=== PATIENT | male | born 1980 | race Caucasian/White ===

== ENCOUNTER 2016-10-28 23:57 | Observation (INO) | payer SELFPAY ==
[~2016-10-28] VITALS: Ht 175.3 cm; Wt 64.0 kg
[~2016-10-28 23:57] MED LIST: CEPH500C3 PO
[2016-10-28 23:59] VITALS: BP 118/81; PULSE 90; RESP 12; TEMP 98.3; O2SAT 100
[2016-10-29] MEDS ORDERED: KETOROLAC TROMETHAMINE 30 MG/ML (IVP) VIAL IV PUSH ONE (00:15)
[2016-10-29] MEDS ORDERED: CLINDAMYCIN INJ 900 MG in SODIUM CHLORIDE 0.9% INJ 100 ML IV ONE (00:15)
[2016-10-29] MEDS ORDERED: TETANUS/DIPHTHERIA TOXOID ADULT 0.5 ML VIAL IM ONE (00:15)
[2016-10-29] MEDS ORDERED: SODIUM CHLOR 0.9% 1000 ML INJ 1,000 ML IV ONE (00:15)
[2016-10-29] MEDS ORDERED: LIDOCAINE HCL 1% PF 30 ML VIAL INFIL ONE (00:15)
[2016-10-29 00:16] VITALS: BP 118/81; PULSE 90; RESP 14; TEMP 98.3; O2SAT 100
--- NOTE | 2016-10-29 00:25 | PD ---
HPI Chief Complaint: skin condition Time Seen by Provider: 00:15 Travel History International Travel<30 days: No Contact w/Intl Traveler<30days: No Traveled to known affect area: No History of Present Illness HPI 36-year-old male presents to the emergency department by private transportation for evaluation of redness and swelling to the left lower leg. Patient has noted the symptoms of the past 2-3 days. Patient states symptoms worsened overnight as he was manipulating the site trying to drain it on his own. Patient does not report any ascending erythema or left groin tenderness or lymphadenopathy. Patient is not diabetic. Patient has history of prior IV drug use but has been drug free since July 2016 and reports December 2015 he was hospitalized at [facility] with multiple abscesses to the right upper extremity secondary to IV drug use and skin popping. Patient denies any skin popping to this area or recent skin popping. Patient states he is not sure but may have been bitten by something as other members in his household have had insect/spider bites. Mother at the bedside reports no one in the household with MRSA infection history. Patient reportedly had fever earlier as high as 102F. [facility] Past Medical History Narrative Medical Mitral valve prolapse prior IV drug abuse; tobacco use; nursing notes reviewed Heart Rhythm Problems: Yes (pt told MVP 15 years ago.) Cardiovascular Problems: Yes (mitral valve prolapse) Diminished Hearing: No Social History Alcohol Use: No Tobacco Use: Yes (1 PPD) Substance Use: Yes (iv dilaudid today, iv cocaine last night.) Allergies-Medications (Allergen,Severity, Reaction): Coded Allergies: No Known Allergies (Unverified , 04/25/15) Reported Meds & Prescriptions Reported Meds & Active Scripts Active Keflex (Cephalexin Monohydrate) 500 Mg Cap 500 Mg PO 4 TIMES A DAY Review of Systems Except as stated in HPI: all other systems reviewed are Neg General / Constitutional: Positive: Fever, No: Chills HENT: No: Congestion Cardiovascular: No: Chest Pain or Discomfort Respiratory: No: Shortness of Breath Gastrointestinal: No: Nausea, Vomiting, Abdominal Pain Genitourinary: No: Decreased Urinary Output, Flank Pain Musculoskeletal: Positive: Myalgias, Arthralgias, No: Limited ROM Skin: Positive Rash, Positive Lumps Neurologic: No: Weakness Psychiatric: Positive: Substance Abuse (prior history of IV Dilaudid and cocaine use), No: Anxiety Endocrine: No: Heat Intolerance Hematologic/Lymphatic: No: Lymph Node Enlargement Physical Exam Narrative GENERAL: Well-developed well-nourished male in no acute distress no respiratory distress; triage vital signs values in normal range SKIN: Warm and dry. HEAD: Normocephalic. EYES: No scleral icterus. No injection or drainage. NECK: Supple, trachea midline. No JVD or lymphadenopathy. CARDIOVASCULAR: Regular rate and rhythm without murmurs, gallops, or rubs. RESPIRATORY: Breath sounds equal bilaterally. No accessory muscle use. GASTROINTESTINAL: Abdomen soft, non-tender, nondistended. MUSCULOSKELETAL: No cyanosis, or edema. Soft tissue swelling with increased warmth, fluctuance, induration, and central scab to the medial distal left lower leg, no crepitus, no ascending erythema, no left groin lymphadenopathy or tenderness. Dorsalis pedis pulse 2+ to palpation. Capillary refill brisk less than 2 seconds per digit. BACK: Nontender without obvious deformity. No CVA tenderness. Data Data Last Documented VS Vital Signs Date Time Temp Pulse Resp B/P Pulse Ox O2 Delivery O2 Flow Rate FiO2 10/29/16 02:17 16 10/29/16 00:16 98.3 90 118/81 100 Orders Basic Metabolic Panel (Bmp) (10/29/16 00:15) Complete Blood Count With Diff (10/29/16 00:15) Blood Culture (10/29/16 00:15) Wound Culture And Gram Stain (10/29/16 00:15) Iv Access Insert/Monitor (10/29/16 00:15) Clindamycin Inj (Cleocin Inj) (10/29/16 00:15) Tetanus/Diphtheria Tox Adult (Tetanus/Di (10/29/16 00:15) Sodium Chlor 0.9% 1000 Ml Inj (Ns 1000 M (10/29/16 00:15) Lidocaine Pf 1% Inj (Xylocaine-Mpf 1% In (10/29/16 00:15) Ketorolac Inj (Toradol Inj) (10/29/16 00:15) Lactic Acid (10/29/16 02:18) Piperacil-Tazo 3.375 Gm Premix (Zosyn 3. (10/29/16 02:30) Drug Screen, Random Urine (10/29/16 02:23) Place In Observation (10/29/16 ) Vital Signs (Adult) Q4H (10/29/16 02:31) Activity Oob Ad Susana (10/29/16 02:31) Dehydrogenation Operator Head / Telemetry .CONTINUOUS (10/29/16 02:31) Diet Heart Healthy (10/29/16 Breakfast) Sodium Chloride 0.9% Flush (Ns Flush) (10/29/16 02:45) Sodium Chloride 0.9% Flush (Ns Flush) (10/29/16 09:00) Basic Metabolic Panel (Bmp) (10/30/16 06:00) Complete Blood Count With Diff (10/30/16 06:00) Case Management Consult (10/29/16 02:31) Naloxone Inj (Narcan Inj) (10/29/16 02:45) Clindamycin Inj (Cleocin Inj) (10/29/16 08:00) Piperacil-Tazo 4.5 Gm Premix (Zosyn 4.5 (10/29/16 09:00) Admit Order (Ed Use Only) (10/29/16 ) ^ Saline Lock (10/29/16 02:33) Resp Oxygen Russ C Titrat 1-4 L (10/29/16 ) Notify Dr: Other (10/29/16 02:33) Sodium Chloride 0.9% Flush (Ns Flush) (10/29/16 09:00) Sodium Chloride 0.9% Flush (Ns Flush) (10/29/16 02:45) Labs Laboratory Tests Test 10/29/16 10/29/16 01:14 02:25 White Blood Count 18.1 TH/MM3 Red Blood Count 4.36 MIL/MM3 Hemoglobin 12.8 GM/DL Hematocrit 37.7 % Mean Corpuscular Volume 86.4 FL Mean Corpuscular Hemoglobin 29.3 PG Mean Corpuscular Hemoglobin 33.9 % Concent Red Cell Distribution Width 13.2 % Platelet Count 410 TH/MM3 Mean Platelet Volume 7.3 FL Neutrophils (%) (Auto) 80.6 % Lymphocytes (%) (Auto) 9.0 % Monocytes (%) (Auto) 7.1 % Eosinophils (%) (Auto) 2.5 % Basophils (%) (Auto) 0.8 % Neutrophils # (Auto) 14.6 TH/MM3 Lymphocytes # (Auto) 1.6 TH/MM3 Monocytes # (Auto) 1.3 TH/MM3 Eosinophils # (Auto) 0.5 TH/MM3 Basophils # (Auto) 0.1 TH/MM3 CBC Comment AUTO DIFF Differential Comment AUTO DIFF CONFIRMED Platelet Estimate NORMAL Platelet Morphology Comment NORMAL Red Cell Morphology Comment NORMAL Sodium Level 137 MEQ/L Potassium Level 3.8 MEQ/L Chloride Level 104 MEQ/L Carbon Dioxide Level 26.9 MEQ/L Anion Gap 6 MEQ/L Blood Urea Nitrogen 15 MG/DL Creatinine 0.76 MG/DL Estimat Glomerular Filtration 117 ML/MIN Rate Random Glucose 89 MG/DL Calcium Level 8.4 MG/DL Lactic Acid Level 0.8 mmol/L Urine Opiates Screen NEG Urine Barbiturates Screen NEG Urine Amphetamines Screen NEG Urine Benzodiazepines Screen NEG Urine Cocaine Screen POS Urine Cannabinoids Screen NEG MDM Medical Decision Making Medical Screen Exam Complete: Yes Emergency Medical Condition: Yes Medical Record Reviewed: Yes Interpretation(s) CBC & BMP Diagram 10/29/16 01:14 Vital Signs Date Time Temp Pulse Resp B/P Pulse Ox O2 Delivery O2 Flow Rate FiO2 10/29/16 02:17 16 10/29/16 00:21 14 10/29/16 00:16 98.3 90 14 118/81 100 10/28/16 23:59 98.3 90 12 118/81 100 Lactic acid: 0.8, not elevated Differential Diagnosis abscess, cellulitis, foreign body, sepsis; also to consider osteomyelitis, necrotizing fasciitis Narrative Course Specimens collected and sent for resulting patient administered clindamycin 900 mg IV piggyback skin; I&D of the left ankle abscess performed cultured irrigated and packed. Delayed specimen collection as nursing staff with difficulty obtaining IV access ; specimens collected and sent for resulting including wound culture and blood cultures. CBC is automated differential leukocytosis 18,000 with left shift 80% neutrophils; normal range metabolic panel normal bicarbonate and anion gap; vital signs are within normal range however in view of prior history of IV drug use and skin popping even though patient denies this activity and lifestyle at this time concerned that this may be a skin popped site although patient believes he was bitten by a spider this is also a consideration no crepitus to suggest subcutaneous air site has not rapidly worsened or progressed. However was expanded coverage with Zosyn and admit patient for ongoing IV antibiotics as patient does report history at home of 102F and lactic acid obtained as well. Patient here is afebrile no tachycardia and no tachypnea however leukocytosis with report of fever --would meet sirs and with infectious source sepsis. Patient aware of admission recommendation and agrees. Sepsis Criteria SIRS Criteria (2 or more): WBC > 21953, < 4000 or > 10% bands Physician Communication Physician Communication case discussed with Dr Anderson for admission Diagnosis Primary Impression: Cellulitis and abscess of leg, except foot Admitting Information Admitting Physician Requests: Admit Kassy Schaffer MD Oct 29, 2016 00:25
[2016-10-29 01:36] LABS: AUTOMATED NEUTROPHIL # 14.6 TH/MM3 (1.8-7.7); BASOPHIL # 0.1 TH/MM3 (0-0.2); BASOPHIL % 0.8 % (0.0-2.0); EOSINOPHIL # 0.5 TH/MM3 (0-0.4); EOSINOPHIL % 2.5 % (0.0-4.0); HEMATOCRIT 37.7 % (39.0-51.0); LYMPHOCYTE # 1.6 TH/MM3 (1.0-4.8); MEAN CELL VOLUME 86.4 FL (80.0-100.0); MEAN CORPUSCULAR HEMOGLOBIN 29.3 PG (27.0-34.0); MEAN CORPUSCULAR HGB CONC 33.9 % (32.0-36.0); MONO % 7.1 % (0.0-8.0); NEUT % 80.6 % (16.0-70.0); PLATELET COUNT 410 TH/MM3 (150-450); RED BLOOD COUNT 4.36 MIL/MM3 (4.50-5.90); RED CELL DISTRIBUTION WIDTH 13.2 % (11.6-17.2); WHITE BLOOD COUNT 18.1 TH/MM3 (4.0-11.0)
[2016-10-29 01:41] LABS: POTASSIUM 3.8 MEQ/L (3.5-5.1)
[2016-10-29 01:42] LABS: HEMO FLAGS AUTO DIFF
[2016-10-29 01:44] LABS: BICARBONATE 26.9 MEQ/L (21.0-32.0)
[2016-10-29 01:55] LABS: PLATELET ESTIMATE SMEAR NORMAL (NORMAL); PLATELET MORPHOLOGY NORMAL (NORMAL); SCAN/DIFF AUTO DIFF CONFIRMED
[2016-10-29] MEDS ORDERED: PIPERACIL-TAZO 3.375 GM PREMIX 50 ML IV ONE (02:30)
[2016-10-29] MEDS ORDERED: SODIUM CHLORIDE 0.9% FLUSH 10 ML FLUSH IVF PRN (02:45)
[2016-10-29] MEDS ORDERED: NALOXONE HCL 0.4 MG/ML AMP IV PRN (02:45)
[2016-10-29] MEDS ORDERED: SODIUM CHLORIDE 0.9% FLUSH 10 ML FLUSH IV FLUSH PRN (02:45)
[2016-10-29 02:54] LABS: AMPHETAMINE, URINE NEG (NEG)
[2016-10-29 02:55] LABS: BARBITURATES, URINE NEG (NEG)
[2016-10-29 03:00] VITALS: BP 98/56; PULSE 68; RESP 14; O2SAT 99
[2016-10-29 03:04] LABS: COCAINE, URINE POS (NEG)
[2016-10-29 07:00] VITALS: BP 103/70; PULSE 70; RESP 16; TEMP 98.3; O2SAT 99
[2016-10-29] MEDS ORDERED: CLINDAMYCIN INJ 900 MG in SODIUM CHLORIDE 0.9% INJ 100 ML IV SCH (08:00)
[2016-10-29 08:35] VITALS: O2SAT 99
[2016-10-29] MEDS ORDERED: PIPERACIL-TAZO 4.5 GM PREMIX 100 ML IV SCH (09:00)
[2016-10-29] MEDS ORDERED: SODIUM CHLORIDE 0.9% FLUSH 10 ML FLUSH IV FLUSH SCH ×2 (09:00)
[2016-10-29 09:25] LABS: AUTOMATED NEUTROPHIL # 10.5 TH/MM3 (1.8-7.7); BASOPHIL # 0.6 TH/MM3 (0-0.2); BASOPHIL % 3.9 % (0.0-2.0); EOSINOPHIL # 0.5 TH/MM3 (0-0.4); EOSINOPHIL % 3.2 % (0.0-4.0); HEMATOCRIT 38.5 % (39.0-51.0); HEMO FLAGS DIFF FINAL; LYMPHOCYTE # 1.8 TH/MM3 (1.0-4.8); MEAN CORPUSCULAR HGB CONC 34.1 % (32.0-36.0); MONO % 9.5 % (0.0-8.0); NEUT % 71.4 % (16.0-70.0); PLATELET COUNT 353 TH/MM3 (150-450); RED BLOOD COUNT 4.53 MIL/MM3 (4.50-5.90); RED CELL DISTRIBUTION WIDTH 12.7 % (11.6-17.2); WHITE BLOOD COUNT 14.8 TH/MM3 (4.0-11.0)
--- NOTE | 2016-10-29 10:02 | HHI.DCPOC ---
Discharge Care Plan Diagnosis: (1) Abscess of left leg excluding foot Goals to Promote Your Health * To prevent worsening of your condition and complications * To maintain your health at the optimal level Directions to Meet Your Goals Take your medications as prescribed Follow your dietary instruction Follow activity as directed Keep your appointments as scheduled Take your immunizations and boosters as scheduled If your symptoms worsen call your PCP, if no PCP go to Urgent Care Center or Emergency Room Smoking is Dangerous to Your Health. Avoid second hand smoke Call the 24-hour hour crisis hotline for domestic abuse at Leodan Campbell Oct 29, 2016 10:02
[2016-10-29] MEDS ORDERED: BACT800T5 PO (10:04)
[2016-10-29 10:10] VITALS: BP 103/71; PULSE 75; RESP 16; O2SAT 99
--- NOTE | 2016-10-29 10:36 | HHI.HP ---
[facility] Service [facility] Primary Care Physician No Primary Care Physician Admission Diagnosis abscess w/cellulitis L leg Diagnoses: (1) Abscess of left leg excluding foot Chief Complaint: Left foot abscess Travel History International Travel<30 Days: No Contact w/Intl Traveler <30 Da: No Traveled to Known Affected Are: No History of Present Illness 36-year-old male with no chronic medical illnesses who presented to the hospital because of left leg abscess. Patient states that he usually gets abscesses periodically. He indicates that he does have history of IV drug use and needle popping. Cocaine is his drug of choice. He indicates that he has not used any IV drugs since July, however he does admit to cocaine use. He was evaluated in presence of his mother at bedside. They do not feel that this is related to any needle related injections. They feel this is a brown recluse spider bite. Patient started developing abscess 4 days ago which eventually got worse. Patient came to emergency department for evaluation. Patient had incision and drainage done. There is a line marked on the leg at the site of the cellulitis. Upon evaluating the patient this morning the wound is draining nicely with packing in place. Erythema has significantly reduced from the previously drawn line. Patient is very eager to go home. Patient clinically improved at this time. Will plan discharge accordingly. Review of Systems Constitutional: COMPLAINS OF: Fever, DENIES: Diaphoretic episodes, Fatigue, Weight gain, Weight loss, Chills, Dizziness, Change in appetite, Night Sweats Eyes: DENIES: Blurred vision, Diplopia, Eye inflammation, Eye pain, Vision loss , Double Vision Ears, nose, mouth, throat: DENIES: Nasal discharge, Throat pain, Ear Pain, Running Nose, Sinus Pain Respiratory: DENIES: Apneas, Cough, Snoring, Wheezing, Hemoptysis, Sputum production, Shortness of breath Cardiovascular: DENIES: Chest pain, Palpitations, Syncope, Dyspnea on Exertion , Lower Extremity Edema, Orthopnea Gastrointestinal: DENIES: Abdominal pain, Black stools, Bloody stools, Constipation, Diarrhea, Nausea, Vomiting, Difficulty Swallowing, Anorexia Neurologic: DENIES: Abnormal gait, Headache, Localized weakness, Paresthesias, Seizures, Speech Problems, Tremor, Poor Balance Past Family Social History Past Medical History History of IV drug use Mitral valve prolapse Past Surgical History No previous surgeries Reported Medications No home medications Allergies: Coded Allergies: No Known Allergies (Unverified , 04/25/15) Family History Reviewed and unremarkable for any heart disease, diabetes, cancer, seizures, stroke Social History Patient smokes a half a pack a cigarettes a day. He denies any alcohol use. Is indicated that he has not used any drugs since July, however he only admits he does continue to use cocaine occasionally Physical Exam Vital Signs Vital Signs Date Time Temp Pulse Resp B/P Pulse Ox O2 Delivery O2 Flow Rate FiO2 10/29/16 10:10 75 16 103/71 99 Room Air 10/29/16 08:35 99 21 10/29/16 07:00 98.3 70 16 103/70 99 Room Air 10/29/16 03:00 14 10/29/16 03:00 68 14 98/56 99 Room Air 10/29/16 02:17 16 10/29/16 00:21 14 10/29/16 00:16 98.3 90 14 118/81 100 10/28/16 23:59 98.3 90 12 118/81 100 Physical Exam GENERAL: Well-developed, well-nourished, in no acute distress. alert and orientated HEENT: Head is normocephalic without any lesions or masses noted. Facial features are symmetric. Eyes: Pupils equal round reactive to light. Extraocular muscles are intact. Conjunctivae were clear. Oropharyngeal: Pharynx without any erythema edema. Tongue is midline without deviation. Buccal mucosa is moist without any masses or lesions NECK: Supple without any masses. Trachea midline no deviation. No JVD, no bruits are appreciated CARDIAC: Regular rhythm, regular rate. S1/S2 are heard. No murmurs gallops or rubs. LUNGS: Clear to auscultation bilaterally. No wheeze, rhonchi or rales. No use of accessory muscles on inspiration or expiration. ABDOMEN: Soft, nontender. Nondistended. Bowel sounds heard in all 4 quadrants. No organomegaly or masses. Negative rebound, negative guarding EXTREMITIES: No edema, pulses are equal bilaterally. No cyanosis or clubbing. Patient has multiple scars on arms, legs from previous abscesses. There is a fresh puncture wound noted on the left hand. Fresh wound noted on the left proximal forearm NEUROLOGY: Mood and affect appear appropriate. Cranial nerves II through XII grossly intact. Muscle strength 5/5 in upper and lower extremities bilaterally. Deep tendon reflexes are 2+ in upper and lower extremities bilaterally. LEFT LOWER EXTREMITY: Patient does have abscess noted on the left medial aspect of distal tibia. It is draining nicely. Packing is in place. There is 1+ edema noted around the ankle. A line was previously drawn for cellulitis which the erythema has likely rescinded from the line. Laboratory Laboratory Tests Test 10/29/16 10/29/16 10/29/16 01:14 02:25 09:11 White Blood Count 18.1 14.8 Red Blood Count 4.36 4.53 Hemoglobin 12.8 13.1 Hematocrit 37.7 38.5 Mean Corpuscular Volume 86.4 85.0 Mean Corpuscular Hemoglobin 29.3 29.0 Mean Corpuscular Hemoglobin 33.9 34.1 Concent Red Cell Distribution Width 13.2 12.7 Platelet Count 410 353 Mean Platelet Volume 7.3 7.1 Neutrophils (%) (Auto) 80.6 71.4 Lymphocytes (%) (Auto) 9.0 12.0 Monocytes (%) (Auto) 7.1 9.5 Eosinophils (%) (Auto) 2.5 3.2 Basophils (%) (Auto) 0.8 3.9 Neutrophils # (Auto) 14.6 10.5 Lymphocytes # (Auto) 1.6 1.8 Monocytes # (Auto) 1.3 1.4 Eosinophils # (Auto) 0.5 0.5 Basophils # (Auto) 0.1 0.6 CBC Comment AUTO DIFF DIFF FINAL Differential Comment AUTO DIFF CONFIRMED Platelet Estimate NORMAL Platelet Morphology Comment NORMAL Red Cell Morphology Comment NORMAL Sodium Level 137 Potassium Level 3.8 Chloride Level 104 Carbon Dioxide Level 26.9 Anion Gap 6 Blood Urea Nitrogen 15 Creatinine 0.76 Estimat Glomerular Filtration 117 Rate Random Glucose 89 Calcium Level 8.4 Lactic Acid Level 0.8 Urine Opiates Screen NEG Urine Barbiturates Screen NEG Urine Amphetamines Screen NEG Urine Benzodiazepines Screen NEG Urine Cocaine Screen POS Urine Cannabinoids Screen NEG Date/Time Procedure Status Source Growth 10/29/16 01:14 Aerobic Blood Culture Received Blood Peripheral Pending 10/29/16 01:14 Anaerobic Blood Culture Received Blood Peripheral Pending 10/29/16 00:55 Gram Stain - Final Resulted Wound Leg 10/29/16 00:55 Wound Culture Resulted Wound Leg Pending Result Diagram: 10/29/16 0911 10/29/16 0114 Assessment and Plan Assessment and Plan 36 year-old male with known history of IV drug use, drug use with skin popping who presented because of abscess on the left medial ankle. Abscess/cellulitis of the left medial ankle, improved Patient had formal incision and drainage performed by emergency room physician , bandage in place with good drainage, cellulitis significantly improved from previously marked line Patient started on Zosyn and clindamycin Patient counseled extensively on wound care and outpatient management IV drug use/needle skin popping Patient counseled on cessation DVT prevention Low risk, early ambulation Written by Leodan Campbell, acting as scribe for Dr. Cat on 10/29/16 at 10:34. This note was transcribed by scribe Leodan Campbell. I, Dr. Leodan Cat personally performed the history, physical exam, and medical decision making; and confirmed the accuracy of the information in the transcribed note. Authenticated by Dr. Leodan Cat on 10/29/16 at 10:47. Discharge disposition Discharge home in stable condition Activity: Ad sterling. Diet: Regular diet Medications per medication reconciliation: Bactrim DS 1 tablet twice daily for 10 days Follow-up primary medical doctor in one week Leodan Campbell Oct 29, 2016 10:36 Leodan Cat MD Oct 29, 2016 10:47
== END 2016-10-29 11:14 | disposition home or self-care (01) ==
LOC: PHED 23:57 → INTOOBSV 10-29 02:35 → PHEDA 10-29 02:35 → PHEDH 10-29 06:34
PROVIDERS: ADMIT Family Medicine; ATTEND Family Medicine
DX: L02.416 Cutaneous abscess of left lower limb (principal); L03.116 Cellulitis of left lower limb; A49.01 Methicillin susceptible Staphylococcus aureus infection, unspecified site; I34.1 Nonrheumatic mitral (valve) prolapse; F14.90 Cocaine use, unspecified, uncomplicated; F17.210 Nicotine dependence, cigarettes, uncomplicated
CPT/HCPCS: 10061; 80048; 80307; 83605; 85025; 86403; 87040; 87070; 87077; 87185; 87186; 87205; 90471; 90714; 96365; 96375; 99284; G0378; J1885; J2543; J7030

== ENCOUNTER 2017-01-12 02:10 | Inpatient (IN) | payer SELFPAY ==
[~2017-01-12] VITALS: Ht 175.3 cm; Wt 61.7 kg
[2017-01-12] VITALS (7 sets, daily range): BP systolic 126–161; BP diastolic 82–109; PULSE 65–77; RESP 16–21; TEMP 97–99.7; O2SAT 95–100
[~2017-01-12 02:10] MED LIST changes: +BACT800T5 PO; -CEPH500C3 PO
[2017-01-12] MEDS ORDERED: VANCOMYCIN 1,000 MG/NS 250 ML IV ONE ×2 (02:30)
[2017-01-12] MEDS ORDERED: PIPERACIL-TAZO 4.5 GM PREMIX 100 ML IV ONE (02:30)
[2017-01-12] MEDS ORDERED: KETOROLAC TROMETHAMINE 30 MG/ML (IVP) VIAL IV PUSH ONE (03:30)
[2017-01-12 03:42] LABS: BASOPHIL # 0.1 TH/MM3 (0-0.2); BASOPHIL % 0.9 % (0.0-2.0); EOSINOPHIL # 0.6 TH/MM3 (0-0.4); EOSINOPHIL % 4.2 % (0.0-4.0); HEMATOCRIT 42.2 % (39.0-51.0); HEMO FLAGS DIFF FINAL; LYMPH % 9.2 % (9.0-44.0); LYMPHOCYTE # 1.2 TH/MM3 (1.0-4.8); MEAN CELL VOLUME 87.5 FL (80.0-100.0); MEAN CORPUSCULAR HEMOGLOBIN 29.1 PG (27.0-34.0); MEAN CORPUSCULAR HGB CONC 33.2 % (32.0-36.0); MONO % 10.4 % (0.0-8.0); NEUT % 75.3 % (16.0-70.0); PLATELET COUNT 347 TH/MM3 (150-450); RED BLOOD COUNT 4.82 MIL/MM3 (4.50-5.90); RED CELL DISTRIBUTION WIDTH 14.3 % (11.6-17.2); WHITE BLOOD COUNT 13.3 TH/MM3 (4.0-11.0)
[2017-01-12 03:54] LABS: ALKALINE PHOSPHATASE 76 U/L (45-117); ALT (GPT) 73 U/L (12-78); ANION GAP 5 MEQ/L (5-15); AST (GOT) 68 U/L (15-37); BICARBONATE 29.9 MEQ/L (21.0-32.0); BLOOD UREA NITROGEN 12 MG/DL (7-18); CHLORIDE 102 MEQ/L (98-107); GLOMERULAR FILTRATION RATE 81 ML/MIN (>89); SODIUM (NA) 137 MEQ/L (136-145); TOTAL BILIRUBIN ADULT 0.4 MG/DL (0.2-1.0)
[2017-01-12 03:57] LABS: CREATINE KINASE 74 U/L (39-308); POTASSIUM 3.9 MEQ/L (3.5-5.1)
--- NOTE | 2017-01-12 04:03 | PD ---
HPI Chief Complaint: Edema Time Seen by Provider: 03:54 Travel History International Travel<30 days: No Contact w/Intl Traveler<30days: No Traveled to known affect area: No History of Present Illness HPI 36-year-old male came to the emergency room brought by the EMS with history of left upper extremity swelling. Patient used to be an IV drug abuser but until 2 months ago. He has stopped using IV drugs but the swelling started suddenly since yesterday which is progressively worsening. Patient is trying to dunk his hand under hot water. Patient says that the pain returned the ER if is excruciating. She says that the pain is excruciating. Patient denies of any chills or fever. Vital signs were relatively stable. [facility] Past Medical History Narrative Medical List of his past medical, surgical, social and family history as reviewed from the nursing note. Blood Disorders: No Heart Rhythm Problems: Yes (pt told MVP 15 years ago.) Cancer: No Cardiovascular Problems: Yes (mitral valve prolapse) High Cholesterol: No Chest Pain: No Congestive Heart Failure: No Diminished Hearing: No Endocrine: No Genitourinary: No Immune Disorder: No Musculoskeletal: No Neurologic: No Psychiatric: No Reproductive: No Respiratory: No Influenza Vaccination: No Social History Alcohol Use: No Tobacco Use: Yes (1 PPD) Substance Use: No (HX of IV drug use) Allergies-Medications (Allergen,Severity, Reaction): Coded Allergies: No Known Allergies (Unverified , 01/12/17) Comments No known drug allergies. Reported Meds & Prescriptions Reported Meds & Active Scripts Active Narrative Medication List of his home medications reviewed from the nursing note. Review of Systems Except as stated in HPI: all other systems reviewed are Neg Physical Exam Narrative GENERAL: Awake, alert, anxious, moderate distress SKIN: Focused skin assessment warm/dry. HEAD: Atraumatic. Normocephalic. EYES: Pupils equal and round. No scleral icterus. No injection or drainage. ENT: No nasal bleeding or discharge. Mucous membranes pink and moist. NECK: Trachea midline. No JVD. CARDIOVASCULAR: Regular rate and rhythm. No murmur appreciated. RESPIRATORY: No accessory muscle use. Clear to auscultation. Breath sounds equal bilaterally. GASTROINTESTINAL: Abdomen soft, non-tender, nondistended. Hepatic and splenic margins not palpable. MUSCULOSKELETAL: No obvious deformities. No clubbing. No cyanosis. No edema. Left upper extremity below the elbow looks little swollen. Left hand over the palmar surface the fingers and palm and the dorsum of the hand all are swollen. NEUROLOGICAL: Awake and alert. No obvious cranial nerve deficits. Motor grossly within normal limits. Normal speech. PSYCHIATRIC: Appropriate mood and affect; insight and judgment normal. Data Data Last Documented VS Vital Signs Date Time Temp Pulse Resp B/P Pulse Ox O2 Delivery O2 Flow Rate FiO2 01/12/17 02:20 99.7 70 18 161/99 98 Nasal Cannula 2 Orders Ketorolac Inj (Toradol Inj) (01/12/17 03:30) Vancomycin Inj (Vancomycin Inj) (01/12/17 02:30) Piperacil-Tazo 4.5 Gm Premix (Zosyn 4.5 (01/12/17 02:30) Lactic Acid (01/12/17 02:55) Complete Blood Count With Diff (01/12/17 02:55) Creatine Kinase (Cpk) (01/12/17 02:55) Comprehensive Metabolic Panel (01/12/17 02:55) Blood Culture (01/12/17 02:55) Blood Culture (01/12/17 02:55) Ct Forearm W Iv Contrast (01/12/17 03:45) Iohexol 350 Inj (Omnipaque 350 Inj) (01/12/17 04:40) Wound Culture And Gram Stain (01/12/17 05:43) Synovial Fluid Crystals (01/12/17 05:43) Lidocai-Epi 1%-1:100,000 Inj (Xylocaine- (01/12/17 05:54) Admit Order (Ed Use Only) (01/12/17 06:24) Labs Laboratory Tests Test 01/12/17 01/12/17 02:55 06:05 White Blood Count 13.3 TH/MM3 Red Blood Count 4.82 MIL/MM3 Hemoglobin 14.0 GM/DL Hematocrit 42.2 % Mean Corpuscular Volume 87.5 FL Mean Corpuscular Hemoglobin 29.1 PG Mean Corpuscular Hemoglobin 33.2 % Concent Red Cell Distribution Width 14.3 % Platelet Count 347 TH/MM3 Mean Platelet Volume 8.6 FL Neutrophils (%) (Auto) 75.3 % Lymphocytes (%) (Auto) 9.2 % Monocytes (%) (Auto) 10.4 % Eosinophils (%) (Auto) 4.2 % Basophils (%) (Auto) 0.9 % Neutrophils # (Auto) 10.0 TH/MM3 Lymphocytes # (Auto) 1.2 TH/MM3 Monocytes # (Auto) 1.4 TH/MM3 Eosinophils # (Auto) 0.6 TH/MM3 Basophils # (Auto) 0.1 TH/MM3 CBC Comment DIFF FINAL Differential Comment Sodium Level 137 MEQ/L Potassium Level 3.9 MEQ/L Chloride Level 102 MEQ/L Carbon Dioxide Level 29.9 MEQ/L Anion Gap 5 MEQ/L Blood Urea Nitrogen 12 MG/DL Creatinine 1.04 MG/DL Estimat Glomerular Filtration 81 ML/MIN Rate Random Glucose 84 MG/DL Lactic Acid Level 0.7 mmol/L Calcium Level 8.8 MG/DL Total Bilirubin 0.4 MG/DL Aspartate Amino Transf 68 U/L (AST/SGOT) Alanine Aminotransferase 73 U/L (ALT/SGPT) Alkaline Phosphatase 76 U/L Total Creatine Kinase 74 U/L Total Protein 8.3 GM/DL Albumin 3.4 GM/DL Synovial Fluid Crystals NONE MDM Medical Decision Making Medical Screen Exam Complete: Yes Emergency Medical Condition: Yes Medical Record Reviewed: Yes Interpretation(s) Twelve-lead EKG was reviewed by me. Normal sinus rhythm, normal axis, peaked T waves. Heart rate of 83 bpm. Differential Diagnosis Deep tissue infection of the upper extremity,, cellulitis, abscess Narrative Course 4:01 AM blood test results of back and patient has some leukocytosis. I have ordered a CAT scan of his left elbow and hand. He has been given antibiotic medication for pain. Awaiting for the CAT scan report. 6:07 AM CAT scan report was suggestive of fluid in the wrist joint. Based on the report and the clinical picture I was concerned of septic arthritis. I have done a arthrocentesis. Please refer to my procedure note. Purulent fluid of 5 mL was aspirated which is sent for culture, Gram stain and joint crystals. Currently awaiting for the hospitalist and the hand surgeon to call back. Patient has been given antibiotics. 6:25 AM I spoke with Dr. Jain from hand surgery. He wants the patient nothing by mouth so that he can take him to the OR to wash out the joint. Procedures Procedure Narrative Left wrist arthrocentesis: The wrist joint for his cleaned with Betadine and gauze 3 on the dorsal aspect. The blisters tubercle and the abductor pollicis longus was identified but with great difficulty due to the swelling. The skin was numbed with 1% lidocaine with epi. 3 ML was infiltrated. 20-gauge needle attached to a 20 mL syringe was ventricularly inserted and syringe was aspirated. 5 mL of purulent fluid was aspirated out that was sent for culture, Gram stain and crystals. I put some dry gauze dressing and wrapped it with Kerlix. Patient tolerated the procedure well. EKG Prior to Arrival: No Physician Communication Physician Communication Dr. Jain Diagnosis Primary Impression: Septic arthritis Qualified Code: M00.9 - Pyogenic arthritis of left wrist, due to unspecified organism Additional Impression: Cellulitis Qualified Code: L03.114 - Cellulitis of left upper extremity Admitting Information Admitting Physician Requests: Admit Scripts Amlodipine (Norvasc)5 Mg Tab5 Mg PO DAILY #30 TAB Ref 3 Prov:Samuel Fung MD 01/15/17 Lactobacillus Acidophilus (Acidophilus/l-Sporogenes)1 Tab Tab1 Tab PO Q12HR # 60 TAB Prov:Samuel Fung MD 01/15/17 Hydrocodone-Acetaminophen (Lortab)5-325 Mg Tab1 Tab PO Q6H PRN (PAIN) #20 TAB Ref 0 Prov:Samuel Fung MD 01/15/17 Aldair Pichardo MD Jan 12, 2017 04:03
[2017-01-12] MEDS ORDERED: IOHEXOL 350 MG/ML 10 ML VIAL (for RAD DIAG) IV ONE (04:40)
--- NOTE | 2017-01-12 05:24 | RADRPT ---
EXAM DATE/TIME: 01/12/2017 04:36 [place] COMPARISON: No previous studies available for comparison. INDICATIONS : Left forearm swelling. IV CONTRAST: 86 cc Omnipaque 350 (iohexol) IV RADIATION DOSE: 13.29 CTDIvol (mGy) MEDICAL HISTORY : Cardiovascular disease. IV Substance abuse. SURGICAL HISTORY : None. ENCOUNTER: Initial ACUITY: 1 day PAIN SCALE: 6/10 LOCATION: Left distal TECHNIQUE: Volumetric scanning of the forearm was performed. Using automated exposure control and adjustment of the mA and/or kV according to patient size, radiation dose was kept as low as reasonably achievable to obtain optimal diagnostic quality images. DICOM format image data is available electronically fo r review and comparison. FINDINGS: BONES: No evidence of fracture. Alignment is within normal limits. No periosteal reaction to suggest osteom yelitis. No lytic destructive process. JOINTS: No evidence of joint narrowing. There is joint effusion at the wrist. SOFT TISSUES: Muscles, tendons, and neurovascular structures are grossly unremarkable. No evidence of mass, organiz ed fluid collection, or foreign body. There is soft tissue swelling and probable cellulitic changes o f the wrist and hand dorsally. CONCLUSION: 1. Large joint effusion at the wrist. 2. Cellulitic changes. Samuel Ramon MD on January 12, 2017 at 5:19 Board Certified Radiologist. This report was verified electronically.
[2017-01-12] MEDS ORDERED: LIDOCAINE 1%/EPINEPHrine 1:100,000 SOLN 30 ML VIAL ONE (05:54)
--- NOTE | 2017-01-12 06:22 | HHI.HP ---
[facility] No Primary Care Physician Admission Diagnosis Diagnoses: Chief Complaint: left hand swelling Travel History International Travel<30 Days: No Contact w/Intl Traveler <30 Da: No Traveled to Known Affected Are: No History of Present Illness Written by OMER Cervantes acting as scribe for Dr. Albert] on 01/12/17 at 06:21. 36 y/o male with a history of anxiety, and mitral valve prolapse presents to the ED with complaints of left hand swelling for the last 3 days ago. Denies chest pain, sob, or chills, states he thinks he may have had a fever at home. He does have a history of IVDA but states he has not injected anything for 2 months. Review of Systems Constitutional: COMPLAINS OF: Fever, DENIES: Chills Respiratory: DENIES: Cough, Sputum production, Shortness of breath Cardiovascular: DENIES: Chest pain, Lower Extremity Edema Gastrointestinal: DENIES: Constipation, Diarrhea, Nausea, Vomiting Genitourinary: DENIES: Dysuria, Nocturia Musculoskeletal: COMPLAINS OF: Joint pain, Joint Swelling, DENIES: Back pain, Neck pain Integumentary: DENIES: Rash Hematologic/lymphatic: DENIES: Lymphadenopathy Immunologic/allergic: DENIES: Urticaria Neurologic: DENIES: Headache Past Family Social History Past Medical History Mitral valve prolapse Anxiety Past Surgical History Patient denies any surgical history Reported Medications Reported Meds & Active Scripts Active No Active Prescriptions or Reported Medications Allergies: Coded Allergies: No Known Allergies (Unverified , 01/12/17) Family History DM and heart disease Social History Tobacco use: 1/2 PPD Alcohol use: Denies Illicit drug use: Cocaine, Prior IVDA clean for 2 months Physical Exam Vital Signs Vital Signs Date Time Temp Pulse Resp B/P Pulse Ox O2 Delivery O2 Flow Rate FiO2 01/12/17 02:20 99.7 70 18 161/99 98 Nasal Cannula 2 Physical Exam GENERAL: This is a well-nourished, well-developed patient, in no apparent distress. SKIN: Left wrist and hand swelling with erythema. HEAD: Atraumatic. Normocephalic. No temporal or scalp tenderness. EYES: Pupils equal round and reactive. Extraocular motions intact. ENT: Nose without bleeding, purulent drainage or septal hematoma. Airway patent. NECK: Trachea midline. No JVD or lymphadenopathy. Supple, nontender, no meningeal signs. CARDIOVASCULAR: Regular rate and rhythm without murmurs, gallops, or rubs. RESPIRATORY: Clear to auscultation. Breath sounds equal bilaterally. No wheezes , rales, or rhonchi. GASTROINTESTINAL: Abdomen soft, non-tender, nondistended. No hepato-splenomegaly , or palpable masses. No guarding. MUSCULOSKELETAL: Left wrist/hand edematous and tender No calf tenderness. NEUROLOGICAL: Awake and alert. Motor and sensory grossly within normal limits. Normal speech. Laboratory Laboratory Tests Test 01/12/17 02:55 White Blood Count 13.3 Red Blood Count 4.82 Hemoglobin 14.0 Hematocrit 42.2 Mean Corpuscular Volume 87.5 Mean Corpuscular Hemoglobin 29.1 Mean Corpuscular Hemoglobin 33.2 Concent Red Cell Distribution Width 14.3 Platelet Count 347 Mean Platelet Volume 8.6 Neutrophils (%) (Auto) 75.3 Lymphocytes (%) (Auto) 9.2 Monocytes (%) (Auto) 10.4 Eosinophils (%) (Auto) 4.2 Basophils (%) (Auto) 0.9 Neutrophils # (Auto) 10.0 Lymphocytes # (Auto) 1.2 Monocytes # (Auto) 1.4 Eosinophils # (Auto) 0.6 Basophils # (Auto) 0.1 CBC Comment DIFF FINAL Differential Comment Sodium Level 137 Potassium Level 3.9 Chloride Level 102 Carbon Dioxide Level 29.9 Anion Gap 5 Blood Urea Nitrogen 12 Creatinine 1.04 Estimat Glomerular Filtration 81 Rate Random Glucose 84 Lactic Acid Level 0.7 Calcium Level 8.8 Total Bilirubin 0.4 Aspartate Amino Transf 68 (AST/SGOT) Alanine Aminotransferase 73 (ALT/SGPT) Alkaline Phosphatase 76 Total Creatine Kinase 74 Total Protein 8.3 Albumin 3.4 Date/Time Procedure Status Source Growth 01/12/17 06:05 Gram Stain Received Wound Wrist Pending 01/12/17 06:05 Wound Culture Received Wound Wrist Pending 01/12/17 02:55 Aerobic Blood Culture Received Blood Peripheral Pending 01/12/17 02:55 Anaerobic Blood Culture Received Blood Peripheral Pending Result Diagram: 01/12/17 0255 01/12/17 0255 Imaging Last Impressions Upper Extremity CT 01/12/17 0345 Signed Impressions: Service Date/Time: Thursday, January 12, 2017 04:36 - CONCLUSION: 1. Large joint effusion at the wrist. 2. Cellulitic changes. Samuel Ramon MD Assessment and Plan Problem List: (1) Septic joint of left wrist ICD Code: M00.9 Status: Acute Assessment and Plan 36 y/o male with a history of anxiety, and mitral valve prolapse presents to the ED with complaints of left hand swelling for the last 3 days ago. Septic joint, left wrist, aspirated by ED physician Upper Extremity CT reviewed and shows Large joint effusion at the wrist. Cellulitic changes. -Consult hand surgery, Dr Jain plans to take patient to OR today -IV antibiotics Zosyn, Vancomycin -Pain management with Leukocytosis, likely due to septic wrist join -Cont antibiotics as above -CBC in AM -Wound and blood cultures pending DVT prophylaxis: SCDs This note was transcribed by cruzito Gerber. I, Dr. Leodan Cat personally performed the history, physical exam, and medical decision making; and confirmed the accuracy of the information in the transcribed note. Authenticated by Dr. Leodan Cat on 01/12/17 at 06:38. Discussed Condition With Patient, and ED physician Physician Certification 2 Midnight Certification Type: Admission for Inpatient Services Order for Inpatient Services The services are ordered in accordance with Medicare regulations or non- Medicare payer requirements, as applicable. In the case of services not specified as inpatient-only, they are appropriately provided as inpatient services in accordance with the 2-midnight benchmark. Estimated LOS (days): 2 days is the estimated time the patient will need to remain in the hospital, assuming treatment plan goals are met and no additional complications. Post-Hospital Plan: Home Problem Qualifiers (1) Septic joint of left wrist: Qualified Code: M00.9 - Pyogenic arthritis of left wrist, due to unspecified organism Flower Gerber Jan 12, 2017 06:22 Leodan Cat MD Jan 12, 2017 06:38
[2017-01-12] MEDS ORDERED: ACETAMINOPHEN 325 MG TAB PO PRN (06:30)
[2017-01-12] MEDS ORDERED: LACTULOSE SYRUP 20 GM/30 ML CUP PO PRN (06:30)
[2017-01-12] MEDS ORDERED: ONDANSETRON HCL 4 MG/2 ML VIAL IVP PRN (06:30)
[2017-01-12] MEDS ORDERED: NALOXONE HCL 0.4 MG/ML AMP IV PRN (06:30)
[2017-01-12] MEDS ORDERED: Vancomycin Consult Pharmacy 1 EA OTHER SCH (06:30)
[2017-01-12] MEDS ORDERED: SENNOSIDES 8.6 MG TAB PO PRN (06:30)
[2017-01-12] MEDS ORDERED: MAGNESIUM HYDROXIDE SUSP 30 ML CUP PO PRN (06:30)
[2017-01-12] MEDS ORDERED: BISACODYL 10 MG SUPP RECTAL PRN (06:30)
[2017-01-12] MEDS ORDERED: PIPERACIL-TAZO 3.375 GM PREMIX 50 ML IV SCH (09:00)
[2017-01-12] MEDS ORDERED: PROPOFOL 200 MG/20 ML AMP IV ONE (09:38)
[2017-01-12] MEDS ORDERED: ONDANSETRON HCL 4 MG/2 ML VIAL IV PUSH ONE (09:39)
[2017-01-12] MEDS ORDERED: LACTATED RINGER'S 1000 ML INJ 1,000 ML IV ONE (09:39)
--- NOTE | 2017-01-12 10:26 | HHI.PR ---
Addendum to Inpatient Note Addendum Reason: Additional Documentation Additional Information 01/12/17-patient seen and examined in regard to Septic joint, left wrist. Currently nothing by mouth pending and surgery evaluation for possible I&D Samuel Fung MD Jan 12, 2017 10:26
[2017-01-12] MEDS: SODIUM CHLORIDE 0.9% FLUSH 10 ML FLUSH IV FLUSH SCH ×2 (11:09→19:39)
[2017-01-12] MEDS: PIPERACIL-TAZO 3.375 GM PREMIX 50 ML IV SCH ×3 (11:10→22:59)
[2017-01-12] MEDS ORDERED: fentaNYL CITRATE 250 MCG/5 ML AMP ONE (12:55)
--- NOTE | 2017-01-12 13:09 | MB ---
cc: ZAIN FAYE M.D., SHRAVANTI R. MD DATE OF CONSULTATION: 01/12/2017 REQUESTING PHYSICIAN: Aldair Pichardo MD. REASON FOR CONSULTATION: Infection of the left wrist. HISTORY OF PRESENT ILLNESS: The patient is a 36 year-old male who came to the emergency room at 3:10 this morning. He was complaining of left upper extremity swelling. The patient indicates that he was an IV drug abuser but has not used anything for two months. He noticed yesterday the swelling started and it has gotten progressively worse. The patient denies contact with someone with Neisseria gonorrhea. The patient was seen earlier today and the dorsal aspect of the left wrist was aspirated. Approximately 5 mL of fluid was obtained with [address] scan was performed. The CT scan indicated joint effusion at the wrist. It did indicate that there was no periosteal reaction to suggest osteomyelitis. There were no lytic destructive lesions and alignment was within normal limits. The conclusion was large joint effusion at the wrist, soft tissue swelling and cellulitis. The CT scan also noted that there was no evidence of a mass or organized fluid collection or foreign body. Consultation was requested regarding evaluation and treatment of this patient. PAST MEDICAL HISTORY The patient is otherwise well. ALLERGIES None. MEDICATIONS None. REVIEW OF SYSTEMS 10 systems is negative in detail except as related to his wrist. SOCIAL HISTORY The patient smokes cigarettes and works installing fences. PHYSICAL EXAMINATION: The patient is lying comfortably in bed. Extraocular muscles are intact. HEENT: His pupils are equal, round and reactive to light. His mouth is clear. Neck is supple without masses. Lungs: Clear. Heart: Regular rate and rhythm. No murmurs appreciated. Extremities: Examination of the left upper extremity reveals dressing in place. This is removed. The area of aspiration is noted. There is no fluctuance distal to the wrist. There is some fluctuance on the radial side of the wrist, in the area of the proximal and distal rows. I have able to flex and extend his wrist without evidence of crepitus or any significant pain. There is no grinding noted. LABORATORY DATA The patient's white count on admission was 13.3 with a positive shift, Gram stain is pending. IMPRESSION The patient appears to have an abscess on the dorsal aspect of his left wrist. This may or may not involve the wrist joint. PLAN The patient will be taken to the operating room for exploration, irrigation and debridement as needed. The patient understands and accepts the risks and complications of the surgery. MD AMARILIS Cummings/SMITA /11:51 AM /12:58 PM
[2017-01-12] MEDS ORDERED: BUPIVACAINE HCL PF 0.5% 30 ML VIAL ONE (13:19)
--- NOTE | 2017-01-12 13:35 | EKG ---
Date Performed: 01/12/2017 Time Performed: 02:19:57 PTAGE: 36 years EKG: Sinus rhythm POSSIBLE EARLY REPOLARIZATION PREVIOUS TRACING : 01/11/2017 14.40 Compared to prior tracing no significant change DOCTOR: Derek Blount Interpretating Date/Time 01/12/2017 13:33:49
--- NOTE | 2017-01-12 14:02 | HHI.PR ---
Immediate Post Op Note Procedure Date: Jan 12, 2017 Pre Op Diagnosis: (1) Septic joint of left wrist Post Op Diagnosis: (1) Septic joint of left wrist Surgeon: Rita Jain Valve Fitter(s): None Procedure: Incision, drainage and irrigation of septic left wrist. Anesthesia: General Drains: On[place], Other (pediatric feeding tube connected to suction) Tourniquet time (min at mmHg) 25 minutes at 220 mmHg Patient to: PACU Patient Condition: Good Date/Time of Procedure: SEE SURGICAL CARE RECORD Rita Jain MD Jan 12, 2017 14:01
[2017-01-12] MEDS ORDERED: DO NOT ADM ANY ANTICOAGULANT DRUGS PRN (14:05)
[2017-01-12] MEDS: VANCOMYCIN 1,000 MG/NS 250 ML IV SCH ×2 (14:57)
[2017-01-12] MEDS: ACETAMINOPHEN 325 MG TAB PO PRN ×2 (16:44→22:59)
[2017-01-12] MEDS: KETOROLAC TROMETHAMINE 30 MG/ML (IVP) VIAL IV PUSH PRN (23:34)
[2017-01-13] VITALS: BP 134/91; PULSE 65; RESP 18; TEMP 98.1; O2SAT 99
[2017-01-13] MEDS: PIPERACIL-TAZO 3.375 GM PREMIX 50 ML IV SCH ×3 (03:46→16:06)
[2017-01-13 04:00] VITALS: BP 140/92; PULSE 61; RESP 18; TEMP 97.1; O2SAT 98
[2017-01-13] MEDS: VANCOMYCIN 1,000 MG/NS 250 ML IV SCH ×4 (05:06→16:46)
[2017-01-13] MEDS: ACETAMINOPHEN 325 MG TAB PO PRN ×3 (05:06→21:02)
[2017-01-13] MEDS: KETOROLAC TROMETHAMINE 30 MG/ML (IVP) VIAL IV PUSH PRN ×3 (06:08→18:20)
[2017-01-13 08:00] VITALS: BP 139/83; PULSE 60; RESP 18; TEMP 98.5; O2SAT 100
--- NOTE | 2017-01-13 09:30 | HHI.PR ---
Subjective Remarks Follow-up Septic joint, left wrist 01/13/17-patient seen and examined, he started post I&D left septic joint of the risk and currently complain of some throbbing pain however afebrile. MARYLOU drain without any output Objective Vitals Vital Signs Date Time Temp Pulse Resp B/P Pulse Ox O2 Delivery O2 Flow Rate FiO2 01/13/17 04:00 97.1 61 18 140/92 98 01/13/17 00:00 98.1 65 18 134/91 99 01/12/17 20:00 97.4 69 17 141/85 98 01/12/17 16:23 98.4 67 20 156/99 100 01/12/17 14:40 97.5 65 21 126/83 95 01/12/17 14:30 98.6 66 14 128/80 100 Nasal Cannula 2 01/12/17 14:15 63 15 118/78 100 Nasal Cannula 2 01/12/17 14:00 98.7 68 21 103/71 99 Nasal Cannula 2 01/12/17 11:52 136/88 01/12/17 10:31 97.0 66 19 151/109 100 I/O 01/12/17 01/12/17 01/12/17 01/13/17 01/13/17 01/13/17 07:00 15:00 23:00 07:00 15:00 23:00 Intake Total 500 ml 780 ml 480 ml Output Total 5 ml 400 ml Balance 495 ml 780 ml 80 ml Intake Oral 480 ml 480 ml IV Total 300 ml Other 500 ml Output Urine Total 400 ml Estimated Blood Loss 5 ml # Voids 1 2 Result Diagram: 01/12/17 0255 01/12/17 0255 Imaging Last Impressions Upper Extremity CT 01/12/17 0345 Signed Impressions: Service Date/Time: Thursday, January 12, 2017 04:36 - CONCLUSION: 1. Large joint effusion at the wrist. 2. Cellulitic changes. Samuel Ramon MD Objective Remarks GENERAL: NAD SKIN: Warm and dry. HEAD: Normocephalic. EYES: No scleral icterus. No injection or drainage. NECK: Supple, trachea midline. No JVD or lymphadenopathy. CARDIOVASCULAR: Regular rate and rhythm without murmurs, gallops, or rubs. RESPIRATORY: Breath sounds equal bilaterally. No accessory muscle use. GASTROINTESTINAL: Abdomen soft, non-tender, nondistended. MUSCULOSKELETAL: No cyanosis, or edema. Dressing over left wrist; MARYLOU drain with minimal output-neurovascular intact BACK: Nontender without obvious deformity. No CVA tenderness. A/P Problem List: (1) Septic joint of left wrist ICD Code: M00.9 Status: Acute (2) Cellulitis ICD Code: L03.90 Status: Acute (3) Tobacco abuse ICD Code: Z72.0 Status: Acute (4) Tobacco abuse counseling ICD Code: Z71.6 Status: Chronic (5) Elevated BP without diagnosis of hypertension ICD Code: R03.0 Status: Acute Assessment and Plan 36-year-old man with Septic joint of the left wrist Cellulitis of left wrist Status post I&D by hand surgeons pending wound culture report Currently on IV vancomycin and Zosyn Parenteral pain management Place consultation to infectious disease specialist Tobacco abuse Tobacco counseling provided Start nicotine patch Elevated BP without diagnosis of hypertension Likely secondary to poorly controlled pain Consider starting low dose oral antihypertensive medication if no improvement despite pain management DVT prophylaxis Encourage ambulation Problem Qualifiers (1) Septic joint of left wrist: Qualified Code: M00.9 - Pyogenic arthritis of left wrist, due to unspecified organism (2) Cellulitis: Qualified Code: L03.114 - Cellulitis of left upper extremity Samuel Fung MD Jan 13, 2017 09:30
[2017-01-13] MEDS: REMOVE OLD PATCH T-DERMAL SCH (09:41)
[2017-01-13] MEDS: NICOTINE 21 MG/24 HR PATCH T-DERMAL SCH (09:41)
[2017-01-13] MEDS: SODIUM CHLORIDE 0.9% FLUSH 10 ML FLUSH IV FLUSH SCH ×2 (09:42→21:00)
[2017-01-13 10:21] LABS: AUTOMATED NEUTROPHIL # 5.1 TH/MM3 (1.8-7.7); BASOPHIL # 0.1 TH/MM3 (0-0.2); BASOPHIL % 1.4 % (0.0-2.0); EOSINOPHIL # 0.5 TH/MM3 (0-0.4); EOSINOPHIL % 5.9 % (0.0-4.0); HEMATOCRIT 45.1 % (39.0-51.0); HEMO FLAGS DIFF FINAL; LYMPH % 19.3 % (9.0-44.0); LYMPHOCYTE # 1.6 TH/MM3 (1.0-4.8); MEAN CELL VOLUME 88.4 FL (80.0-100.0); MEAN CORPUSCULAR HEMOGLOBIN 29.1 PG (27.0-34.0); MEAN CORPUSCULAR HGB CONC 32.9 % (32.0-36.0); MONO % 13.7 % (0.0-8.0); NEUT % 59.7 % (16.0-70.0); PLATELET COUNT 245 TH/MM3 (150-450); RED BLOOD COUNT 5.09 MIL/MM3 (4.50-5.90); RED CELL DISTRIBUTION WIDTH 14.2 % (11.6-17.2); WHITE BLOOD COUNT 8.5 TH/MM3 (4.0-11.0)
--- NOTE | 2017-01-13 11:42 | MP ---
cc: ZAIN FAYE M.D. DATE OF SURGERY: 01/12/2017 PREOPERATIVE DIAGNOSIS Septic joint, left wrist. POSTOPERATIVE DIAGNOSIS Septic joint, left wrist. PROCEDURE Incision and drainage of septic joint, left wrist. ANESTHESIA General. SURGEON Zain Faye MD INDICATION A 36-year-old male who came into the emergency room where he had approximately 5 mL of fluid removed from the joint. FINDINGS The patient did indeed have a septic joint with some residual fluid. At the completion of the procedure the affluent was completely clear. There was no infection in the subcutaneous tissues. TOURNIQUET TIME 25 minutes. DRAINS A drain was left in place to suction. DETAILS OF PROCEDURE The patient was seen preoperatively where the site and side were identified and marked. The patient was then taken to the operating room and placed in a supine position. His identity was checked against the arm band and the consent form, site and side confirmed. A timeout was called prior to beginning the procedure. The left upper extremity was prepped with Hibiclens and draped in the usual sterile fashion. The area to be incised was outlined with a marking pen as an transverse incision at the area of fluctuance and previous drainage. This was between the third and fourth dorsal compartments. The arm was elevated and then the tourniquet was inflated to 220 mmHg. A #15 blade was used to make the incision down through the skin, down to the subcutaneous tissue. Using a spread technique, the tendons of the second dorsal compartment were identified and retracted. There was no pus in the subcutaneous tissue. In between the third and fourth dorsal compartments a clamp was used to enter the wrist joint. Fluid immediately came out. It was turbid. It was also under pressure. The capsule to the joint was then opened and irrigated with a pediatric feeding tube copiously until the affluent was clear. The catheter was placed in many different directions and the wrist was maneuvered in order to make sure that the fluid was clear. The drain was then left in the wound in the joint and secured with 4-0 nylon suture material. The wound was partially closed and the ulnar portion was packed with a Onelia drain which was then sewn in place. The tourniquet was released after 25 minutes of tourniquet time. There was no significant bleeding. The area around the drain was covered with povidone-iodine ointment, Adaptic, 4x4s and Ruslan. The catheter was secured to the forearm with a piece of tape as an omentum and then secured similarly to the outside of the dressing. It was hooked up to a Chandan-Harmon bulb drain. Bupivacaine 0.5% plain was also used to make a dorsal block prior to the incision and it was also infiltrated into the wrist joint itself. Once everything was in place, the patient was taken from the operating room to the recovery room in satisfactory condition having tolerated the procedure well. Postoperative instructions include keeping the arm elevated and keeping the area clean and dry. The patient will have the arm resting on two pillows and the drainage will be to the bulb suction. MD AMARILIS Cummings/BT /2:12 PM /11:45 AM
[2017-01-13 12:00] VITALS: BP 138/82; PULSE 74; RESP 18; TEMP 98.5; O2SAT 98
--- NOTE | 2017-01-13 15:29 | PD.PLAS.PN ---
Subjective Remarks Patient is 1 day status post incision and irrigation of septic left wrist joint. The patient reports improvement. Objective Vital Signs Date Time Temp Pulse Resp B/P Pulse Ox O2 Delivery O2 Flow Rate FiO2 01/13/17 12:00 98.5 74 18 138/82 98 01/13/17 08:00 98.5 60 18 139/83 100 01/13/17 04:00 97.1 61 18 140/92 98 01/13/17 00:00 98.1 65 18 134/91 99 01/12/17 20:00 97.4 69 17 141/85 98 01/12/17 16:23 98.4 67 20 156/99 100 I/O 01/12/17 01/12/17 01/12/17 01/13/17 01/13/17 01/13/17 06:59 14:59 22:59 06:59 14:59 22:59 Intake Total 500 ml 780 ml 480 ml 112 ml Output Total 5 ml 400 ml Balance 495 ml 780 ml 80 ml 112 ml Intake Oral 480 ml 480 ml IV Total 300 ml 112 ml Other 500 ml Output Urine Total 400 ml Estimated Blood Loss 5 ml # Voids 1 2 Laboratory Tests Test 01/13/17 08:49 White Blood Count 8.5 Red Blood Count 5.09 Hemoglobin 14.8 Hematocrit 45.1 Mean Corpuscular Volume 88.4 Mean Corpuscular Hemoglobin 29.1 Mean Corpuscular Hemoglobin 32.9 Concent Red Cell Distribution Width 14.2 Platelet Count 245 Mean Platelet Volume 8.3 Neutrophils (%) (Auto) 59.7 Lymphocytes (%) (Auto) 19.3 Monocytes (%) (Auto) 13.7 Eosinophils (%) (Auto) 5.9 Basophils (%) (Auto) 1.4 Neutrophils # (Auto) 5.1 Lymphocytes # (Auto) 1.6 Monocytes # (Auto) 1.2 Eosinophils # (Auto) 0.5 Basophils # (Auto) 0.1 CBC Comment DIFF FINAL Differential Comment Date/Time Procedure Status Source Growth 01/12/17 14:08 Gram Stain Received Abscess Hand Pending 01/12/17 14:08 Wound Culture Received Abscess Hand Pending 01/12/17 13:28 Gram Stain - Final Resulted Abscess Hand 01/12/17 13:28 Wound Culture - Preliminary Resulted Abscess Hand IMMATURE GROWTH - REINCUBATE 01/12/17 13:28 Fungal Smear - Final Resulted Abscess Hand NO FUNGAL ELEMENTS SEEN. 01/12/17 13:28 Fungal Culture Resulted Abscess Hand Pending 01/12/17 13:28 Acid Fast Stain Received Abscess Hand Pending 01/12/17 13:28 Mycobacterial Culture Received Abscess Hand Pending 01/12/17 02:55 Aerobic Blood Culture - Preliminary Resulted Blood Peripheral NO GROWTH IN 1 DAY 01/12/17 02:55 Anaerobic Blood Culture - Preliminary Resulted Blood Peripheral NO GROWTH IN 1 DAY 01/12/17 02:55 Aerobic Blood Culture Received Blood Peripheral Pending 01/12/17 02:55 Anaerobic Blood Culture Received Blood Peripheral Pending Result Diagram: 01/13/17 0849 01/12/17 0255 Exam Findings Dressings and drains in place. Drains removed during visit. No purulent drainage. Erythema and swelling persist to the hand and fingers. Range of motion is limited due to swelling, but patient is able to flex and extend wrist without pain and move all fingers without pain. Assessment and Plan Diagnosis: (1) Septic joint of left wrist Assessment and Plan Patient is progressing well. Drains removed. Discussed with RN and dressing changes ordered: soak hand in betadine/water solution and apply povidone iodine ointment and dry dressing. Continue with daily application of povidone iodine ointment and dry dressing. Discharge Planning The exam, history, and the medical decision-making described in the above note were completed with the assistance of the mid-level provider. I reviewed and agree with the findings presented. I attest that I had a [id number] encounter with the patient on the same day, and personally performed and documented my assessment and findings in the medical record. Rita Jain M.D. Jayne Traore Jan 13, 2017 15:29
[2017-01-13] MEDS ORDERED: PHARMACY ORDERED LAB ONE (15:45)
[2017-01-13 16:00] VITALS: BP 135/85; PULSE 76; RESP 18; TEMP 97.9; O2SAT 100
[2017-01-13] MEDS: POVIDONE IODINE 10% OINT 30 GM TUBE TOPICAL SCH (16:47)
--- NOTE | 2017-01-13 19:23 | PD.ID.CON ---
History of Present Illness Service ID Consult Requested By Dr Fung Reason for Consult septic L wrist Primary Care Physician No Primary Care Physician Diagnoses: History of Present Illness 36 yo male with h/o IVDU developped swelling pain of the dorsum of L hand x 5 days, getting worse especisally since friday He presetned yday to [place] He had some fever, chills , was noted to have low grade fever and moderate leukocytosis on presentation Upper Extremity CT showed large joint effusion at the wrist. He underwent I+D yday and his draines were removed today His pain improved He is afebrile Wound cultures are positive for MSSA (prelim) Review of Systems Except as stated in HPI: all other systems reviewed are Neg Past Family Social History Allergies: Coded Allergies: No Known Allergies (Unverified , 01/12/17) Past Medical History mitral valve prolapse Past Surgical History none Active Ordered Medications Medications where reviewed in EMR Antibiotics Include: zosyn vancomycin Family History Non-Contributory to current condition Social History + Tobacco.1PPD No ETOH. No Illicit Drugs x 1-2 months Physical Exam Vital Signs Vital Signs Date Time Temp Pulse Resp B/P Pulse Ox O2 Delivery O2 Flow Rate FiO2 01/13/17 16:00 97.9 76 18 135/85 100 01/13/17 12:00 98.5 74 18 138/82 98 01/13/17 08:00 98.5 60 18 139/83 100 01/13/17 04:00 97.1 61 18 140/92 98 01/13/17 00:00 98.1 65 18 134/91 99 01/12/17 20:00 97.4 69 17 141/85 98 Physical Exam CONSTITUTIONAL/GENERAL: This is an adequately nourished patient, in no apparent distress. SKIN: No jaundice, rashes, or lesions. Skin temperature appropriate. Not diaphoretic. HEAD: Atraumatic. Normocephalic. EYES: Pupils equal and round and reactive. Extraocular motions intact. No scleral icterus. No injection or drainage. Fundi not examined. ENT: Hearing grossly normal. Nose without bleeding or purulent drainage. Oral mucosae without visible erythema, exudates, masses, or lesions. NECK: Trachea midline. Supple, nontender. CARDIOVASCULAR: Regular rate and rhythm without murmurs, gallops, or rubs. No JVD. Peripheral pulses symmetric. RESPIRATORY/CHEST: Symmetric, unlabored respirations. Clear to auscultation. Breath sounds equal bilaterally. No wheezes, rales, or rhonchi. GASTROINTESTINAL: Abdomen soft, non-tender, nondistended. No hepato-splenomegaly , or palpable masses. No guarding. Bowel sounds present. GENITOURINARY: Without palpable bladder distension. MUSCULOSKELETAL: Extremities without clubbing, cyanosis, or edema. STATUS LOCALIS: L wrist with joint tenderness and limited range of motion 2/2 pain. L hand with edema, erythema on the dorsum of the wrist No ascending cellulitis or lymphangiotis + incision with small amount of serosang drainage No mottling or clubbing. LYMPHATICS: No palpable cervical axilla or supraclavicular adenopathy. NEUROLOGICAL: Awake and alert. Motor and sensory grossly within normal limits. Follows commands. Clear speech. Moves all extremities. PSYCHIATRIC: No obvious anxiety/depression. no apparent hallucinations or other psychotic thought process. Laboratory Laboratory Tests Test 01/13/17 01/13/17 08:49 16:25 White Blood Count 8.5 Red Blood Count 5.09 Hemoglobin 14.8 Hematocrit 45.1 Mean Corpuscular Volume 88.4 Mean Corpuscular Hemoglobin 29.1 Mean Corpuscular Hemoglobin 32.9 Concent Red Cell Distribution Width 14.2 Platelet Count 245 Mean Platelet Volume 8.3 Neutrophils (%) (Auto) 59.7 Lymphocytes (%) (Auto) 19.3 Monocytes (%) (Auto) 13.7 Eosinophils (%) (Auto) 5.9 Basophils (%) (Auto) 1.4 Neutrophils # (Auto) 5.1 Lymphocytes # (Auto) 1.6 Monocytes # (Auto) 1.2 Eosinophils # (Auto) 0.5 Basophils # (Auto) 0.1 CBC Comment DIFF FINAL Differential Comment Vancomycin Level Trough 5.1 Date/Time Procedure Status Source Growth 01/12/17 14:08 Gram Stain Received Abscess Hand Pending 01/12/17 14:08 Wound Culture Received Abscess Hand Pending 01/12/17 13:28 Gram Stain - Final Resulted Abscess Hand 01/12/17 13:28 Wound Culture - Preliminary Resulted Abscess Hand IMMATURE GROWTH - REINCUBATE 01/12/17 13:28 Fungal Smear - Final Resulted Abscess Hand NO FUNGAL ELEMENTS SEEN. 01/12/17 13:28 Fungal Culture Resulted Abscess Hand Pending 01/12/17 13:28 Acid Fast Stain Received Abscess Hand Pending 01/12/17 13:28 Mycobacterial Culture Received Abscess Hand Pending 01/12/17 02:55 Aerobic Blood Culture - Preliminary Resulted Blood Peripheral NO GROWTH IN 1 DAY 01/12/17 02:55 Anaerobic Blood Culture - Preliminary Resulted Blood Peripheral NO GROWTH IN 1 DAY 01/12/17 02:55 Aerobic Blood Culture Received Blood Peripheral Pending 01/12/17 02:55 Anaerobic Blood Culture Received Blood Peripheral Pending Result Diagram: 01/13/17 0849 01/12/17 0255 Imaging Last Impressions Upper Extremity CT 01/12/17 0345 Signed Impressions: Service Date/Time: Thursday, January 12, 2017 04:36 - CONCLUSION: 1. Large joint effusion at the wrist. 2. Cellulitic changes. Samuel Ramon MD Assessment and Plan Assessment and Plan Septic joint L wrist (? hematougenis) s/p I+D IVDU - dc vancomycin, zosyn -start cefazolin - fu blood clx Yeni Yu MD Jan 13, 2017 19:23
[2017-01-13 20:00] VITALS: BP 126/74; PULSE 74; RESP 16; TEMP 98; O2SAT 98
[2017-01-13] MEDS: ceFAZolin 2 GM PREMIX 50 ML IV SCH (20:58)
[2017-01-13] MEDS: SODIUM CHLORIDE 0.9% FLUSH 10 ML FLUSH IV FLUSH PRN (22:20)
[2017-01-14] VITALS: BP 140/80; PULSE 68; RESP 18; TEMP 97.4; O2SAT 100
[2017-01-14] MEDS: KETOROLAC TROMETHAMINE 30 MG/ML (IVP) VIAL IV PUSH PRN ×4 (00:39→21:32)
[2017-01-14] MEDS: ACETAMINOPHEN 325 MG TAB PO PRN ×3 (03:29→18:01)
[2017-01-14 04:00] VITALS: BP 161/99; PULSE 67; RESP 18; TEMP 98.2; O2SAT 100
[2017-01-14] MEDS: SODIUM CHLORIDE 0.9% FLUSH 10 ML FLUSH IV FLUSH PRN ×2 (05:25→06:19)
[2017-01-14] MEDS: ceFAZolin 2 GM PREMIX 50 ML IV SCH ×3 (05:25→21:32)
[2017-01-14 07:00] LABS: AUTOMATED NEUTROPHIL # 8.2 TH/MM3 (1.8-7.7); BASOPHIL # 0.1 TH/MM3 (0-0.2); BASOPHIL % 0.7 % (0.0-2.0); EOSINOPHIL # 0.6 TH/MM3 (0-0.4); EOSINOPHIL % 5.4 % (0.0-4.0); HEMATOCRIT 43.2 % (39.0-51.0); HEMO FLAGS DIFF FINAL; LYMPH % 12.7 % (9.0-44.0); LYMPHOCYTE # 1.5 TH/MM3 (1.0-4.8); MEAN CELL VOLUME 86.7 FL (80.0-100.0); MEAN CORPUSCULAR HGB CONC 33.4 % (32.0-36.0); MONO % 10.7 % (0.0-8.0); NEUT % 70.5 % (16.0-70.0); PLATELET COUNT 254 TH/MM3 (150-450); RED BLOOD COUNT 4.99 MIL/MM3 (4.50-5.90); RED CELL DISTRIBUTION WIDTH 14.2 % (11.6-17.2); WHITE BLOOD COUNT 11.7 TH/MM3 (4.0-11.0)
[2017-01-14 08:00] VITALS: BP 172/104; PULSE 64; RESP 16; TEMP 98.1; O2SAT 100
[2017-01-14] MEDS: NICOTINE 21 MG/24 HR PATCH T-DERMAL SCH (08:27)
[2017-01-14] MEDS: SODIUM CHLORIDE 0.9% FLUSH 10 ML FLUSH IV FLUSH SCH ×2 (08:28→21:32)
[2017-01-14] MEDS: REMOVE OLD PATCH T-DERMAL SCH (08:28)
--- NOTE | 2017-01-14 09:08 | HHI.PR ---
Subjective Remarks Follow-up Septic joint, left wrist 01/13/17-patient seen and examined, he started post I&D left septic joint of the risk and currently complain of some throbbing pain however afebrile. MARYLOU drain without any output 01/14/17-patient seen and examined, states complain of throbbing pain to the left wrist otherwise afebrile. WBC slightly up Objective Vitals Vital Signs Date Time Temp Pulse Resp B/P Pulse Ox O2 Delivery O2 Flow Rate FiO2 01/14/17 08:00 98.1 64 16 172/104 100 01/14/17 04:00 98.2 67 18 161/99 100 01/14/17 00:00 97.4 68 18 140/80 100 01/13/17 20:00 98.0 74 16 126/74 98 01/13/17 16:00 97.9 76 18 135/85 100 01/13/17 12:00 98.5 74 18 138/82 98 I/O 01/13/17 01/13/17 01/13/17 01/14/17 01/14/17 01/14/17 07:00 15:00 23:00 07:00 15:00 23:00 Intake Total 480 ml 112 ml 1720 ml 60 ml Output Total 400 ml 150 ml Balance 80 ml 112 ml 1720 ml -90 ml Intake Oral 480 ml 1440 ml IV Total 112 ml 280 ml 60 ml Output Urine Total 400 ml 150 ml # Voids 5 # Bowel Movements 1 Result Diagram: 01/14/17 0537 01/12/17 0255 Objective Remarks GENERAL: NAD SKIN: Warm and dry. HEAD: Normocephalic. EYES: No scleral icterus. No injection or drainage. NECK: Supple, trachea midline. No JVD or lymphadenopathy. CARDIOVASCULAR: Regular rate and rhythm without murmurs, gallops, or rubs. RESPIRATORY: Breath sounds equal bilaterally. No accessory muscle use. GASTROINTESTINAL: Abdomen soft, non-tender, nondistended. MUSCULOSKELETAL: No cyanosis, or edema. Dressing over left wrist-neurovascular intact BACK: Nontender without obvious deformity. No CVA tenderness. A/P Problem List: (1) Septic joint of left wrist ICD Code: M00.9 Status: Acute (2) Cellulitis ICD Code: L03.90 Status: Acute (3) Tobacco abuse ICD Code: Z72.0 Status: Chronic (4) Tobacco abuse counseling ICD Code: Z71.6 Status: Chronic (5) Elevated BP without diagnosis of hypertension ICD Code: R03.0 Status: Acute Assessment and Plan 36-year-old man with Septic joint of the left wrist Cellulitis of left wrist Status post I&D by hand surgeons; wound culture positive for staph aureus Currently on IV Ancef and appreciate input from infectious disease specialist Parenteral pain management Tobacco abuse Tobacco counseling provided Continue nicotine patch Elevated BP without diagnosis of hypertension Likely secondary to poorly controlled pain Consider starting low dose oral antihypertensive medication if no improvement despite pain management DVT prophylaxis Encourage ambulation Problem Qualifiers (1) Septic joint of left wrist: Qualified Code: M00.9 - Pyogenic arthritis of left wrist, due to unspecified organism (2) Cellulitis: Qualified Code: L03.114 - Cellulitis of left upper extremity Samuel Fung MD Jan 14, 2017 09:08
[2017-01-14 12:00] VITALS: BP 135/92; PULSE 75; RESP 18; TEMP 98; O2SAT 100
[2017-01-14] MEDS: LACTOBACILLUS ACIDOPHILUS TAB PO SCH ×2 (12:14→21:31)
[2017-01-14 16:00] VITALS: BP 156/106; PULSE 65; RESP 18; TEMP 98.2; O2SAT 100
[2017-01-14] MEDS: POVIDONE IODINE 10% OINT 30 GM TUBE TOPICAL SCH (18:03)
[2017-01-14 20:15] VITALS: BP 147/83; PULSE 70; RESP 18; TEMP 96.8; O2SAT 99
[2017-01-15] VITALS (7 sets, daily range): BP systolic 127–183; BP diastolic 65–104; PULSE 65–86; RESP 16–18; TEMP 96.3–97.8; O2SAT 93–100
[2017-01-15] MEDS: ACETAMINOPHEN 325 MG TAB PO PRN ×3 (02:04→16:36)
[2017-01-15] MEDS: SODIUM CHLORIDE 0.9% FLUSH 10 ML FLUSH IV FLUSH PRN ×2 (05:10→06:22)
[2017-01-15] MEDS: ceFAZolin 2 GM PREMIX 50 ML IV SCH ×2 (05:11→12:47)
[2017-01-15] MEDS: KETOROLAC TROMETHAMINE 30 MG/ML (IVP) VIAL IV PUSH PRN ×2 (05:15→12:47)
[2017-01-15] MEDS: NICOTINE 21 MG/24 HR PATCH T-DERMAL SCH (08:46)
[2017-01-15] MEDS: LACTOBACILLUS ACIDOPHILUS TAB PO SCH (08:46)
[2017-01-15] MEDS: REMOVE OLD PATCH T-DERMAL SCH (08:46)
[2017-01-15] MEDS: POVIDONE IODINE 10% OINT 30 GM TUBE TOPICAL SCH (08:50)
[2017-01-15] MEDS: SODIUM CHLORIDE 0.9% FLUSH 10 ML FLUSH IV FLUSH SCH (08:50)
[2017-01-15] MEDS ORDERED: HYDR-3533 PO (08:51)
[2017-01-15] MEDS ORDERED: LACT PO (08:51)
[2017-01-15] MEDS ORDERED: AMLO5 PO (08:51)
[2017-01-15] MEDS ORDERED: amLODIPine BESYLATE 5 MG TAB PO SCH (09:00)
--- NOTE | 2017-01-15 09:34 | HHI.PR ---
Subjective Remarks Follow-up Septic joint, left wrist 01/13/17-patient seen and examined, he started post I&D left septic joint of the risk and currently complain of some throbbing pain however afebrile. MARYLOU drain without any output 01/14/17-patient seen and examined, states complain of throbbing pain to the left wrist otherwise afebrile. WBC slightly up 01/15/17-patient seen and examined, afebrile. Has full motion to left hand and denies any significant pain. Objective Vitals Vital Signs Date Time Temp Pulse Resp B/P Pulse Ox O2 Delivery O2 Flow Rate FiO2 01/15/17 08:00 97.2 82 16 142/91 95 01/15/17 04:00 96.9 67 16 138/85 99 01/15/17 00:00 97.3 65 16 127/65 100 01/14/17 20:15 96.8 70 18 147/83 99 01/14/17 16:00 98.2 65 18 156/106 100 01/14/17 12:00 98.0 75 18 135/92 100 I/O 01/14/17 01/14/17 01/14/17 01/15/17 01/15/17 01/15/17 07:00 15:00 23:00 07:00 15:00 23:00 Intake Total 60 ml 1492 ml 60 ml 240 ml Output Total 150 ml Balance -90 ml 1492 ml 60 ml 240 ml Intake Oral 1440 ml 240 ml IV Total 60 ml 52 ml 60 ml Output Urine Total 150 ml # Voids 3 1 # Bowel Movements 1 Result Diagram: 01/14/17 0537 01/12/17 0255 Objective Remarks GENERAL: NAD SKIN: Warm and dry. HEAD: Normocephalic. EYES: No scleral icterus. No injection or drainage. NECK: Supple, trachea midline. No JVD or lymphadenopathy. CARDIOVASCULAR: Regular rate and rhythm without murmurs, gallops, or rubs. RESPIRATORY: Breath sounds equal bilaterally. No accessory muscle use. GASTROINTESTINAL: Abdomen soft, non-tender, nondistended. MUSCULOSKELETAL: No cyanosis, or edema. Dressing over left wrist-neurovascular intact BACK: Nontender without obvious deformity. No CVA tenderness. Procedures Incision, drainage and irrigation of septic left wrist 01/12/17 A/P Problem List: (1) Septic joint of left wrist ICD Code: M00.9 Status: Acute (2) Cellulitis ICD Code: L03.90 Status: Acute (3) Tobacco abuse ICD Code: Z72.0 Status: Chronic (4) Tobacco abuse counseling ICD Code: Z71.6 Status: Chronic (5) Elevated BP without diagnosis of hypertension ICD Code: R03.0 Status: Acute (6) Hypertension ICD Code: I10 Status: Acute Assessment and Plan 36-year-old man with Septic joint of the left wrist Cellulitis of left wrist Status post I&D by hand surgeons; wound culture positive for staph aureus Currently on IV Ancef and appreciate input from infectious disease specialist. ID to switch patient to by mouth antibiotic prior to discharge today Parenteral pain management Tobacco abuse Tobacco counseling provided Continue nicotine patch Elevated BP without diagnosis of hypertension/hypertension Likely secondary to poorly controlled pain Will start patient on a low dose of Norvasc 5 mg daily DVT prophylaxis Encourage ambulation Problem Qualifiers (1) Septic joint of left wrist: Qualified Code: M00.9 - Pyogenic arthritis of left wrist, due to unspecified organism (2) Cellulitis: Qualified Code: L03.114 - Cellulitis of left upper extremity Samuel Fung MD Jan 15, 2017 09:34
--- NOTE | 2017-01-15 09:38 | HHI.DS ---
Discharge Summary Admission Date Jan 12, 2017 at 06:26 Discharge Date: Jan 15, 2017 Admitting Diagnosis (1) Septic joint of left wrist ICD Code: M00.9 (2) Cellulitis ICD Code: L03.90 (3) Tobacco abuse ICD Code: Z72.0 (4) Tobacco abuse counseling ICD Code: Z71.6 (5) Elevated BP without diagnosis of hypertension ICD Code: R03.0 (6) Hypertension ICD Code: I10 Procedures Incision, drainage and irrigation of septic left wrist 01/12/17 Brief History - From Admission Written by OMER Cervantes acting as scribe for Dr. Albert] on 01/12/17 at 06:21. 36 y/o male with a history of anxiety, and mitral valve prolapse presents to the ED with complaints of left hand swelling for the last 3 days ago. Denies chest pain, sob, or chills, states he thinks he may have had a fever at home. He does have a history of IVDA but states he has not injected anything for 2 months. CBC/BMP: 01/14/17 0537 01/12/17 0255 Significant Findings Laboratory Tests Test 01/13/17 01/14/17 08:49 05:37 Monocytes (%) (Auto) 13.7 % 10.7 % (0.0-8.0) (0.0-8.0) Eosinophils (%) (Auto) 5.9 % (0.0-4.0) 5.4 % (0.0-4.0) Monocytes # (Auto) 1.2 TH/MM3 1.2 TH/MM3 (0-0.9) (0-0.9) Eosinophils # (Auto) 0.5 TH/MM3 0.6 TH/MM3 (0-0.4) (0-0.4) White Blood Count 11.7 TH/MM3 (4.0-11.0) Neutrophils (%) (Auto) 70.5 % (16.0-70.0) Neutrophils # (Auto) 8.2 TH/MM3 (1.8-7.7) PE at Discharge GENERAL: NAD SKIN: Warm and dry. HEAD: Normocephalic. EYES: No scleral icterus. No injection or drainage. NECK: Supple, trachea midline. No JVD or lymphadenopathy. CARDIOVASCULAR: Regular rate and rhythm without murmurs, gallops, or rubs. RESPIRATORY: Breath sounds equal bilaterally. No accessory muscle use. GASTROINTESTINAL: Abdomen soft, non-tender, nondistended. MUSCULOSKELETAL: No cyanosis, or edema. Dressing over left wrist-neurovascular intact BACK: Nontender without obvious deformity. No CVA tenderness. Hospital Course Patient admitted with septic arthritis left wrist for which and surgery was consulted and he underwent I&D on 01/12/17. He was started on IV antibiotics with consultation to inpatient disease specialist. Patient was switched to IV Ancef, however prior to discharge he was switched to by mouth antibiotic. She was also started on a low-dose of Norvasc secondary to consistently elevated blood pressure despite adequate pain management. Prior to discharge, vitals remained stable and patient's condition improved. Pt Condition on Discharge: Stable Discharge Disposition: Discharge Home Discharge Time: <= 30 minutes Discharge Instructions DIET: Follow Instructions for: Heart Healthy Diet Activities you can perform: Regular-No Restrictions Follow up Referrals: Hand Surgery PCP Follow-up - 1 Week New Medications: Amlodipine (Norvasc) 5 Mg Tab 5 MG PO DAILY Blood Pressure Management #30 Ref 3 TAB Hydrocodone-Acetaminophen (Lortab) 5-325 Mg Tab 1 TAB PO Q6H PRN PAIN #20 Ref 0 TAB Lactobacillus Acidophilus (Acidophilus/l-Sporogenes) 1 Tab Tab 1 TAB PO Q12HR Immunosuppression #60 TAB Samuel Fung MD Jan 15, 2017 09:38
--- NOTE | 2017-01-15 17:22 | HHI.IDPN ---
Subjective Subjective Remarks wrist is better no fever Antibiotics cafazolin Allergies: Coded Allergies: No Known Allergies (Unverified , 01/12/17) Objective . Vital Signs Date Time Temp Pulse Resp B/P Pulse Ox O2 Delivery O2 Flow Rate FiO2 01/15/17 12:00 97.8 75 16 148/99 96 01/15/17 08:00 97.2 82 16 142/91 95 01/15/17 04:00 96.9 67 16 138/85 99 01/15/17 00:00 97.3 65 16 127/65 100 01/14/17 20:15 96.8 70 18 147/83 99 01/14/17 01/14/17 01/15/17 15:00 23:00 07:00 Intake Total 1492 ml 60 ml 240 ml Balance 1492 ml 60 ml 240 ml Intake Oral 1440 ml 240 ml IV Total 52 ml 60 ml # Voids 3 1 # Bowel Movements 1 . Laboratory Tests Test 01/14/17 05:37 White Blood Count 11.7 TH/MM3 Red Blood Count 4.99 MIL/MM3 Hemoglobin 14.4 GM/DL Hematocrit 43.2 % Mean Corpuscular Volume 86.7 FL Mean Corpuscular Hemoglobin 29.0 PG Mean Corpuscular Hemoglobin 33.4 % Concent Red Cell Distribution Width 14.2 % Platelet Count 254 TH/MM3 Mean Platelet Volume 8.5 FL Neutrophils (%) (Auto) 70.5 % Lymphocytes (%) (Auto) 12.7 % Monocytes (%) (Auto) 10.7 % Eosinophils (%) (Auto) 5.4 % Basophils (%) (Auto) 0.7 % Neutrophils # (Auto) 8.2 TH/MM3 Lymphocytes # (Auto) 1.5 TH/MM3 Monocytes # (Auto) 1.2 TH/MM3 Eosinophils # (Auto) 0.6 TH/MM3 Basophils # (Auto) 0.1 TH/MM3 CBC Comment DIFF FINAL Differential Comment Imaging Last Impressions Upper Extremity CT 01/12/17 0345 Signed Impressions: Service Date/Time: Thursday, January 12, 2017 04:36 - CONCLUSION: 1. Large joint effusion at the wrist. 2. Cellulitic changes. Samuel Ramon MD Physical Exam NAD, ambulating STATUS LOCALIS: L hand wiht residual edema, no erythema, incision is well approximates with miniaml serosang dc Assessment & Plan Remarks Septic joint L wrist (? hematougenis), MSSA s/p I+D IVDU - dc cefazolin - Dc home on po clindamycin x4 weeks counting from I+D - fu blood clx Pt needs to report nasuea, vomiting , diarrhea, abd pain rash chk CBC every 1-2 weeks while on abx Scripts filled and printed Yeni Phelan RN, Dr, MD Jan 15, 2017 17:22
[2017-01-15] MEDS ORDERED: CLIN1CAP5 PO (17:25)
[2017-01-15] MEDS ORDERED: cloNIDine HCL 0.2 MG TAB PO ONE (19:00)
== END 2017-01-15 19:45 | disposition home or self-care (01) | DRG 506 ==
LOC: NEPE 02:10 → NEDA 06:26 → HOCA 10:26
PROVIDERS: ADMIT Hospitalist; ATTEND Hospitalist
PROC: 0R9P00Z Drainage of Left Wrist Joint with Drainage Device, Open Approach (ICD-10-PCS; 2017-01-12)
PROC: 0R9P3ZX Drainage of Left Wrist Joint, Percutaneous Approach, Diagnostic (ICD-10-PCS; principal; 2017-01-12 12:58)
DX: M00.032 Staphylococcal arthritis, left wrist (principal); I10 Essential (primary) hypertension; L03.114 Cellulitis of left upper limb; B95.61 Methicillin susceptible Staphylococcus aureus infection as the cause of diseases classified elsewhere; F41.9 Anxiety disorder, unspecified; I34.1 Nonrheumatic mitral (valve) prolapse; F17.210 Nicotine dependence, cigarettes, uncomplicated; F14.90 Cocaine use, unspecified, uncomplicated
CPT/HCPCS: 20605; 73201; 76937; 80053; 80202; 82550; 83605; 85025; 86403; 87015; 87040; 87070; 87102; 87116; 87147; 87186; 87205; 87206; 89060; 93005; 96365; 96368; 96375; J0690; J1885; J2405; J2543; J3010; J3370; J7050; J7120; Q9967

== ENCOUNTER 2017-01-16 03:18 | Emergency (ER) | payer OTHER ==
[~2017-01-16] VITALS: Ht 175.3 cm; Wt 62.0 kg
[~2017-01-16 03:18] MED LIST changes: +AMLO5 PO; -BACT800T5 PO; +CLIN1CAP5 PO; +HYDR-3533 PO; +LACT PO
[2017-01-16 03:26] VITALS: BP 149/96; PULSE 89; RESP 16; TEMP 98.6; O2SAT 100
[2017-01-16 03:29] VITALS: BP 149/96; PULSE 96; RESP 14; TEMP 98.6; O2SAT 99
[2017-01-16] MEDS ORDERED: SODIUM CHLOR 0.9% 1000 ML INJ 1,000 ML IV ONE (04:00)
[2017-01-16] MEDS ORDERED: CLINDAMYCIN 150 MG CAP PO ONE (04:00)
--- NOTE | 2017-01-16 04:17 | PD ---
HPI Chief Complaint: Cardiac Complaint Time Seen by Provider: 03:45 Travel History International Travel<30 days: No Contact w/Intl Traveler<30days: No Traveled to known affect area: No History of Present Illness HPI So 36-year-old man who presents to the emergency department complaining of palpitations. Patient was just discharged after being seen for a a septic arthritis of the left wrist. I&D is been performed by Dr. Jian, grew MSSA, he was started on clindamycin for 4 weeks. Hit a previous abscess of his left ankle. His a history of IV drug use but reports she hasn't used it 2 months. There is some concern he may have had hematogenous spread. Patient reports prior to for 5 days that he had pain and swelling in the left wrist, he did not have any constitutional symptoms like night sweats or feeling ill. He states was in the hospital he developed little bit of chest tightness and palpitations. He states he was discharged home the symptoms worsened and so he called the ambulance tonight. EMS reports initial heart rate in the 150s. Patient states she had tightness in his chest and jaw and this happened. He is a reported previous history of anxiety the patient denies a significant anxiety or panic attacks in the past. History Past Medical History Narrative Medical History of IVDU Previous abscesses Social History Alcohol Use: No Tobacco Use: Yes (1 PPD) Allergies-Medications (Allergen,Severity, Reaction): Coded Allergies: No Known Allergies (Unverified , 01/12/17) Reported Meds & Prescriptions Reported Meds & Active Scripts Active Clindamycin (Clindamycin HCl) 150 Mg Cap 450 Mg PO Q6H 25 Days Norvasc (Amlodipine Besylate) 5 Mg Tab 5 Mg PO DAILY Acidophilus/l-Sporogenes (Lactobacillus Acidophilus) 1 Tab Tab 1 Tab PO Q12HR Lortab (Hydrocodone-Acetaminophen) 5-325 Mg Tab 1 Tab PO Q6H PRN Review of Systems Except as stated in HPI: all other systems reviewed are Neg Physical Exam Narrative GENERAL: Well-appearing 36-year-old man, no acute distress. SKIN: Focused skin assessment warm/dry. HEAD: Atraumatic. Normocephalic. EYES: Pupils equal and round. No scleral icterus. No injection or drainage. ENT: No nasal bleeding or discharge. Mucous membranes pink and moist. NECK: Trachea midline. No JVD. CARDIOVASCULAR: Regular rate and rhythm. No murmur appreciated. RESPIRATORY: No accessory muscle use. Clear to auscultation. Breath sounds equal bilaterally. GASTROINTESTINAL: Abdomen soft, non-tender, nondistended. Hepatic and splenic margins not palpable. MUSCULOSKELETAL: No obvious deformities. Left wrist appears to be well- healing. There is minimal residual swelling. He still is limitations in range of motion. Slight warmth. NEUROLOGICAL: Awake and alert. No obvious cranial nerve deficits. Motor grossly within normal limits. Normal speech. PSYCHIATRIC: Appropriate mood and affect; insight and judgment normal. Data Data Last Documented VS Vital Signs Date Time Temp Pulse Resp B/P Pulse Ox O2 Delivery O2 Flow Rate FiO2 01/16/17 03:29 98.6 96 14 149/96 99 Room Air Orders Electrocardiogram (01/16/17 ) Complete Blood Count With Diff (01/16/17 03:49) Basic Metabolic Panel (Bmp) (01/16/17 03:49) Chest, Single Ap (01/16/17 ) Sodium Chlor 0.9% 1000 Ml Inj (Ns 1000 M (01/16/17 04:00) Clindamycin (Cleocin) (01/16/17 04:00) Labs Laboratory Tests Test 01/16/17 03:52 White Blood Count 16.5 TH/MM3 Red Blood Count 4.91 MIL/MM3 Hemoglobin 14.5 GM/DL Hematocrit 41.9 % Mean Corpuscular Volume 85.2 FL Mean Corpuscular Hemoglobin 29.5 PG Mean Corpuscular Hemoglobin 34.6 % Concent Red Cell Distribution Width 14.1 % Platelet Count 473 TH/MM3 Mean Platelet Volume 7.3 FL Neutrophils (%) (Auto) 84.6 % Lymphocytes (%) (Auto) 6.9 % Monocytes (%) (Auto) 6.8 % Eosinophils (%) (Auto) 1.3 % Basophils (%) (Auto) 0.4 % Neutrophils # (Auto) 14.0 TH/MM3 Lymphocytes # (Auto) 1.1 TH/MM3 Monocytes # (Auto) 1.1 TH/MM3 Eosinophils # (Auto) 0.2 TH/MM3 Basophils # (Auto) 0.1 TH/MM3 CBC Comment DIFF FINAL Differential Comment Sodium Level 137 MEQ/L Potassium Level 3.6 MEQ/L Chloride Level 100 MEQ/L Carbon Dioxide Level 27.7 MEQ/L Anion Gap 9 MEQ/L Blood Urea Nitrogen 12 MG/DL Creatinine 0.93 MG/DL Estimat Glomerular Filtration 92 ML/MIN Rate Random Glucose 99 MG/DL Calcium Level 10.0 MG/DL [facility] Medical Decision Making Medical Screen Exam Complete: Yes Emergency Medical Condition: Yes Interpretation(s) My review of EKG: Normal sinus rhythm rate 94, normal axis, normal intervals, J- point elevation anterior precordium consistent with early repolarization. LABS: CBC remarkable for mild leukocytosis. BMP is unremarkable. Chest x-ray: Negative. Differential Diagnosis Anxiety, systemic infection or inflammation, abscess, endocarditis, other Narrative Course Medical decision making So 36 room and a presents to the emergency department with palpitations and chest tightness. He looks well. I think this was more anxiety than anything else. He has his underlying concern for hematogenous septic arthritis with a history of IV drug use. He'll be closely monitored by ID and hand surgery. We' ll give him a dose of clindamycin here. We'll check labs and x-ray. EKG is unremarkable. Diagnosis Primary Impression: Palpitations Additional Instructions: Take medications as prescribed including her amlodipine and your antibiotic. Follow-up with your physicians as discussed. Return to the emergency department for any new or worsening symptoms. Med/Other Pt SpecificInfo: No Change to Meds Disposition: 01 DISCHARGE HOME Condition: Stable Alexey Kamara MD Jan 16, 2017 04:17
[2017-01-16 04:21] LABS: BASOPHIL # 0.1 TH/MM3 (0-0.2); BASOPHIL % 0.4 % (0.0-2.0); EOSINOPHIL # 0.2 TH/MM3 (0-0.4); EOSINOPHIL % 1.3 % (0.0-4.0); HEMATOCRIT 41.9 % (39.0-51.0); HEMO FLAGS DIFF FINAL; LYMPH % 6.9 % (9.0-44.0); LYMPHOCYTE # 1.1 TH/MM3 (1.0-4.8); MEAN CELL VOLUME 85.2 FL (80.0-100.0); MEAN CORPUSCULAR HEMOGLOBIN 29.5 PG (27.0-34.0); MEAN CORPUSCULAR HGB CONC 34.6 % (32.0-36.0); MONO % 6.8 % (0.0-8.0); NEUT % 84.6 % (16.0-70.0); PLATELET COUNT 473 TH/MM3 (150-450); RED BLOOD COUNT 4.91 MIL/MM3 (4.50-5.90); RED CELL DISTRIBUTION WIDTH 14.1 % (11.6-17.2); WHITE BLOOD COUNT 16.5 TH/MM3 (4.0-11.0)
--- NOTE | 2017-01-16 04:23 | RADRPT ---
EXAM DATE/TIME: 01/16/2017 04:10 [facility] COMPARISON: CHEST SINGLE AP, October 22, 2015, 21:46. INDICATIONS : Chest pain. MEDICAL HISTORY : None. SURGICAL HISTORY : None. ENCOUNTER: Initial ACUITY: 1 day PAIN SCORE: 7/10 LOCATION: Bilateral chest FINDINGS: Single AP view of the chest. The lungs are clear. Cardiomediastinal silhouette within normal limits. No evidence of pleural effusion or pneumothorax. CONCLUSION: No acute cardiopulmonary disease identified. Bucky Jarrett MD on January 16, 2017 at 4:22 Board Certified Radiologist. This report was verified electronically.
[2017-01-16 04:44] LABS: BICARBONATE 27.7 MEQ/L (21.0-32.0); POTASSIUM 3.6 MEQ/L (3.5-5.1)
[2017-01-16 04:59] VITALS: BP 149/76; PULSE 93; RESP 18; O2SAT 96
--- NOTE | 2017-01-16 08:30 | EKG ---
Date Performed: 01/16/2017 Time Performed: 03:31:04 PTAGE: 36 years EKG: Sinus rhythm POSSIBLE LEFT ATRIAL ENLARGEMENT ST ELEVATION, PROBABLY EARLY REPOLARIZATION BORDERLINE ECG PREVIOUS TRACING : 01/12/2017 02.19 No significant change from previous tracing noted. DOCTOR: Braulio Lockhart Interpretating Date/Time 01/16/2017 08:29:07
== END 2017-01-16 05:10 | disposition home or self-care (01) ==
LOC: NEPC 03:18
DX: R00.2 Palpitations (principal); R07.89 Other chest pain; F41.9 Anxiety disorder, unspecified; D72.829 Elevated white blood cell count, unspecified; M25.532 Pain in left wrist; M79.89 Other specified soft tissue disorders; F17.200 Nicotine dependence, unspecified, uncomplicated; Z79.899 Other long term (current) drug therapy
CPT/HCPCS: 71010; 80048; 85025; 93005; 99285; J7030